=== PATIENT | male | born 1955 | race Hispanic/Latino ===

== ENCOUNTER 2020-12-27 05:05 | Emergency (ER) | payer OTHER ==
[~2020-12-27] VITALS: Ht 177.8 cm; Wt 96.2 kg
[~2020-12-27 05:05] MED LIST: ATOR20TA65 PO; BUSP10TA3 PO; DIVA500T52 PO; INSLAN SQ; OMEP20CA12 PO; RISP3TAB63 PO; SERT-439 PO; TRAZ-144 PO
[2020-12-27 05:08] VITALS: BP 181/103
== END 2020-12-27 05:54 | disposition home or self-care (01) ==
LOC: EDH 05:05
DX: R42 Dizziness and giddiness (principal); Z71.1 Person with feared health complaint in whom no diagnosis is made; E11.9 Type 2 diabetes mellitus without complications; F25.9 Schizoaffective disorder, unspecified; F31.9 Bipolar disorder, unspecified; I10 Essential (primary) hypertension; Z79.4 Long term (current) use of insulin; Z79.899 Other long term (current) drug therapy; Z95.5 Presence of coronary angioplasty implant and graft
CPT/HCPCS: 99281

== ENCOUNTER 2021-04-14 16:50 | Inpatient (IN) | payer OTHER ==
[~2021-04-14] VITALS: Ht 177.8 cm; Wt 91.6 kg
[2021-04-14 17:43] LABS: BASOPHILS % (AUTO) 0.7 % (0.0-5.0); EOSINOPHILS % (AUTO) 2.7 % (0.0-8.0); HEMATOCRIT 40.9 % (42-54); LYMPHOCYTES % (AUTO) 20.2 % (21.0-51.0); MEAN CORPUSCULAR HEMOGLOBIN 30.6 pg (27.0-33.0); MEAN CORPUSCULAR HGB CONC 35.7 g/dL (32.0-36.0); MEAN CORPUSCULAR VOLUME 85.7 fL (79-99); MONOCYTES % (AUTO) 10.9 % (3.0-13.0); NEUTROPHILS % (AUTO) 65.3 % (40.0-77.0); PLATELET COUNT (AUTO) 256 K/uL (130-400); RED BLOOD CELL COUNT(AUTO) 4.77 MIL/uL (4.50-6.20); RED CELL DISTRIBUTION WIDTH 11.9 % (11.0-15.5); WHITE BLOOD COUNT (AUTO) 8.5 K/uL (4.8-10.8)
[2021-04-14 17:50] LABS: CARBON DIOXIDE 26 mmol/L (21-32); CHLORIDE 93 mmol/L (101-111); CREATININE 1.1 mg/dL (0.5-1.5); GLOMERULAR FILTR. RATE CALC 72 mL/min (>60); GLUCOSE,RANDOM 201 mg/dL (70-105); POTASSIUM 4.4 mmol/L (3.5-5.1); SODIUM SERUM 128 mmol/L (136-145); UREA NITROGEN, BLOOD 7 mg/dL (7-18)
[2021-04-14] MEDS ORDERED: 0.9%NACL 1000ML 1,000 ML IV ONE (18:00)
[2021-04-14 18:12] LABS: ALANINE AMINOTRANSFERASE 67 U/L (12-78); ALBUMIN 4.3 g/dL (3.5-5.0); ALCOHOL, BLOOD < 3 mg/dL (0-10); ASPARTATE AMINOTRANSFERASE 131 U/L (10-37); BILIRUBIN,TOTAL 0.7 mg/dL (0.2-1.0); TOTAL PROTEIN, SERUM 8.2 g/dL (6.0-8.3)
[2021-04-14 18:14] LABS: ACETAMINOPHEN < 1 mcg/mL (10-29); SALICYLATE < 2.8 mg/dL (2.8-20.0)
[2021-04-14 18:17] LABS: CREATINE KINASE, TOTAL 2328 U/L (21-232)
[2021-04-14] MEDS ORDERED: ASPIRIN 325MG TAB PO ONE (18:30)
[2021-04-14] MEDS ORDERED: ZOLPIDEM TARTRATE 5 MG TAB PO PRN (20:00)
[2021-04-14] MEDS ORDERED: MORPHINE 4 MG SYG IM PRN (20:00)
[2021-04-14] MEDS ORDERED: NITROGLYCERIN 0.4 MG SL TAB SL PRN (20:00)
[2021-04-14] MEDS ORDERED: ASPIRIN 325MG EC TAB PO ONE (20:00)
[2021-04-14] MEDS ORDERED: ACETAMINOPHEN 325 MG TAB PO PRN (20:00)
[2021-04-14] MEDS ORDERED: HALOPERIDOL INJ 5 MG/ML VIAL IV PRN (20:00)
[2021-04-14 20:20] LABS: HEMOGLOBIN A1C 8.5 % (4.0-6.0)
[2021-04-14] MEDS: FAMOTIDINE 20MG TAB PO SCH (20:41)
[2021-04-14] MEDS: 0.9%NACL 1000ML 1,000 ML IV SCH (20:41)
[2021-04-14] MEDS: ENOXAPARIN SODIUM 100 MG/1 ML SQ SCH (20:43)
[2021-04-14 21:26] LABS: APPEARANCE,URINE Clear (CLEAR); BILIRUBIN,URINE Negative (NEGATIVE); COLOR,URINE Yellow (YELLOW); GLUCOSE, URINE (UA) 250 mg/dL (NEGATIVE); KETONES,URINE 15 mg/dL (NEGATIVE); LEUKOCYTE ESTERASE ,URINE Negative (NEGATIVE); NITRATE,URINE Negative (NEGATIVE); OCCULT BLOOD,URINE Negative (NEGATIVE); PH,URINE 5.5 (5.0-8.0); PROTEIN,URINE Negative (NEGATIVE); UROBILINOGEN,URINE 0.2 mg/dL (0.2-1.0)
[2021-04-14 21:34] LABS: AMPHET/METH SCREEN,URINE NEGATIVE (NEGATIVE); BARBITURATE SCREEN, URINE NEGATIVE (NEGATIVE); BENZODIAZEPINES SCREEN,URINE NEGATIVE (NEGATIVE); CANNABINOID SCREEN,URINE NEGATIVE (NEGATIVE); COCAINE SCREEN,URINE NEGATIVE (NEGATIVE); OPIATE SCREEN,URINE NEGATIVE (NEGATIVE); PHENCYCLIDINE SCREEN,URINE NEGATIVE (NEGATIVE)
[2021-04-14 21:41] LABS: BACTERIA,URINE None Seen /HPF (None Seen); RBC,URINE 0-1 /HPF (0-1); SQUAMOUS EPITHELIAL CELL,UR None Seen /HPF (0-2); WBC,URINE 0-1 /HPF (0-1)
[2021-04-14 22:58] VITALS: BP 130/81
[2021-04-15] MEDS: 0.9%NACL 1000ML 1,000 ML IV SCH ×2 (02:40→20:05)
[2021-04-15 04:00] VITALS: BP 142/82
[2021-04-15 08:00] VITALS: BP 140/88
[2021-04-15] MEDS: FAMOTIDINE 20MG TAB PO SCH ×2 (09:55→20:47)
[2021-04-15] MEDS: ASPIRIN 325MG EC TAB PO SCH (09:55)
[2021-04-15] MEDS: ENOXAPARIN SODIUM 100 MG/1 ML SQ SCH ×2 (09:55→20:48)
[2021-04-15 11:53] VITALS: BP 146/86
[2021-04-15] MEDS ORDERED: BUSPIRONE HCL 5 MG TABLET PO SCH (14:00)
[2021-04-15] MEDS ORDERED: 0.9%NACL 1000ML 729 ML IV ONE (14:00)
[2021-04-15] MEDS ORDERED: [UNRECOGNIZED DRUG - OTHER] IV SCH (15:30)
[2021-04-15 16:00] VITALS: BP 154/71
[2021-04-15 20:00] VITALS: BP 153/92
[2021-04-15] MEDS: TRAZODONE HCL 50 MG TAB PO PRN (20:36)
[2021-04-15] MEDS: ATORVASTATIN 20 MG TABLET PO SCH (20:39)
[2021-04-15] MEDS: BUSPIRONE HCL 5 MG TABLET PO SCH (20:46)
[2021-04-15] MEDS: DIVALPROEX SODIUM 250 MG TABLET.DR PO SCH (20:47)
[2021-04-15] MEDS: RISPERIDONE 1 MG TABLET PO SCH (20:47)
[2021-04-15] MEDS: SODIUM BICARBONATE 650 MG TAB PO SCH (20:47)
[2021-04-15] MEDS ORDERED: TRAZODONE HCL 50 MG TAB PO SCH (21:00)
[2021-04-15] MEDS ORDERED: RISPERIDONE 1 MG TABLET PO SCH (21:00)
[2021-04-15] MEDS: HALOPERIDOL 5 MG TABLET PO PRN (22:11)
[2021-04-15] MEDS ORDERED: DiphenhydrAMINE HCL 50 MG/ML VIAL ONE (23:26)
[2021-04-15] MEDS: SODIUM BICARB 8.4% 50ML SYRING 150 MEQ in DEXTROSE 5%-WATER 1,000 ML IVP SCH (23:30)
[2021-04-15] MEDS ORDERED: DiphenhydrAMINE HCL 50 MG/ML VIAL IV ONE (23:30)
[2021-04-16] VITALS (7 sets, daily range): BP systolic 129–171; BP diastolic 69–92
[2021-04-16 03:34] LABS: HEMATOCRIT 37.6 % (42-54); MEAN CORPUSCULAR HEMOGLOBIN 30.9 pg (27.0-33.0); MEAN CORPUSCULAR HGB CONC 34.8 g/dL (32.0-36.0); MEAN CORPUSCULAR VOLUME 88.7 fL (79-99); RED BLOOD CELL COUNT(AUTO) 4.24 MIL/uL (4.50-6.20); RED CELL DISTRIBUTION WIDTH 12.1 % (11.0-15.5); WHITE BLOOD COUNT (AUTO) 5.9 K/uL (4.8-10.8)
[2021-04-16 04:06] LABS: CREATININE 1.1 mg/dL (0.5-1.5)
[2021-04-16] MEDS: 0.9%NACL 1000ML 1,000 ML IV SCH ×2 (05:24→18:40)
[2021-04-16] MEDS ORDERED: SERTRALINE HCL 50 MG TABLET PO SCH (09:00)
[2021-04-16] MEDS: RISPERIDONE 1 MG TABLET PO SCH ×2 (09:00→21:46)
[2021-04-16] MEDS: DIVALPROEX SODIUM 250 MG TABLET.DR PO SCH ×2 (09:00→21:46)
[2021-04-16] MEDS: ASPIRIN 325MG EC TAB PO SCH (09:01)
[2021-04-16] MEDS: BUSPIRONE HCL 5 MG TABLET PO SCH ×3 (09:01→21:45)
[2021-04-16] MEDS: FAMOTIDINE 20MG TAB PO SCH ×2 (09:01→21:46)
[2021-04-16] MEDS: SODIUM BICARBONATE 650 MG TAB PO SCH ×3 (09:01→21:46)
[2021-04-16] MEDS: ENOXAPARIN SODIUM 100 MG/1 ML SQ SCH ×2 (09:02→21:47)
[2021-04-16] MEDS: SODIUM BICARB 8.4% 50ML SYRING 150 MEQ in DEXTROSE 5%-WATER 1,000 ML IVP SCH ×2 (11:00→20:32)
[2021-04-16] MEDS ORDERED: PHENOL 177 ML BOTTLE PO PRN (14:00)
[2021-04-16] MEDS: ATORVASTATIN 20 MG TABLET PO SCH (21:00)
[2021-04-16] MEDS: TRAZODONE HCL 50 MG TAB PO PRN (21:47)
[2021-04-17] MEDS: 0.9%NACL 1000ML 1,000 ML IV SCH ×3 (01:24→20:45)
[2021-04-17 05:34] VITALS: BP 188/96
[2021-04-17] MEDS: DIVALPROEX SODIUM 250 MG TABLET.DR PO SCH ×2 (08:07→20:47)
[2021-04-17] MEDS: RISPERIDONE 1 MG TABLET PO SCH ×2 (08:07→20:47)
[2021-04-17] MEDS: ASPIRIN 325MG EC TAB PO SCH (08:07)
[2021-04-17] MEDS: SODIUM BICARBONATE 650 MG TAB PO SCH ×2 (08:07→14:28)
[2021-04-17] MEDS: ENOXAPARIN SODIUM 100 MG/1 ML SQ SCH ×2 (08:07→20:45)
[2021-04-17] MEDS: FAMOTIDINE 20MG TAB PO SCH ×2 (08:07→20:47)
[2021-04-17] MEDS: BUSPIRONE HCL 5 MG TABLET PO SCH ×3 (08:08→20:46)
[2021-04-17 08:12] VITALS: BP 165/91
[2021-04-17 12:00] VITALS: BP 180/92
[2021-04-17] MEDS: SODIUM BICARB 8.4% 50ML SYRING 150 MEQ in DEXTROSE 5%-WATER 1,000 ML IVP SCH (12:11)
[2021-04-17 15:29] VITALS: BP 161/92
[2021-04-17 20:00] VITALS: BP 165/80
[2021-04-17] MEDS: ATORVASTATIN 20 MG TABLET PO SCH (20:47)
[2021-04-17] MEDS: HALOPERIDOL 5 MG TABLET PO PRN (21:44)
[2021-04-17 21:50] VITALS: BP 174/89
[2021-04-17] MEDS: HYDRALAZINE HCL 10 MG TABLET PO PRN (22:23)
[2021-04-17] MEDS: TRAZODONE HCL 50 MG TAB PO PRN (23:19)
[2021-04-18] VITALS (8 sets, daily range): BP systolic 144–184; BP diastolic 80–98
[2021-04-18] MEDS: 0.9%NACL 1000ML 1,000 ML IV SCH ×4 (01:09→21:01)
[2021-04-18 05:40] LABS: BASOPHILS % (AUTO) 0.6 % (0.0-5.0); EOSINOPHILS % (AUTO) 5.6 % (0.0-8.0); HEMATOCRIT 35.8 % (42-54); LYMPHOCYTES % (AUTO) 26.1 % (21.0-51.0); MEAN CORPUSCULAR HEMOGLOBIN 29.8 pg (27.0-33.0); MEAN CORPUSCULAR HGB CONC 34.1 g/dL (32.0-36.0); MEAN CORPUSCULAR VOLUME 87.3 fL (79-99); NEUTROPHILS % (AUTO) 56.2 % (40.0-77.0); PLATELET COUNT (AUTO) 203 K/uL (130-400); RED CELL DISTRIBUTION WIDTH 11.8 % (11.0-15.5); WHITE BLOOD COUNT (AUTO) 6.6 K/uL (4.8-10.8)
[2021-04-18 06:09] LABS: ALBUMIN 3.2 g/dL (3.5-5.0); BILIRUBIN,TOTAL 0.3 mg/dL (0.2-1.0); POTASSIUM 3.5 mmol/L (3.5-5.1); TOTAL PROTEIN, SERUM 6.7 g/dL (6.0-8.3)
[2021-04-18] MEDS: BUSPIRONE HCL 5 MG TABLET PO SCH ×3 (07:52→21:08)
[2021-04-18] MEDS: DIVALPROEX SODIUM 250 MG TABLET.DR PO SCH ×2 (07:52→21:07)
[2021-04-18] MEDS: FAMOTIDINE 20MG TAB PO SCH ×2 (07:52→21:06)
[2021-04-18] MEDS: ASPIRIN 325MG EC TAB PO SCH (07:52)
[2021-04-18] MEDS: ENOXAPARIN SODIUM 100 MG/1 ML SQ SCH ×2 (07:53→21:12)
[2021-04-18] MEDS: HYDRALAZINE HCL 10 MG TABLET PO PRN (07:53)
[2021-04-18] MEDS: RISPERIDONE 1 MG TABLET PO SCH ×2 (07:53→21:07)
[2021-04-18] MEDS: HALOPERIDOL 5 MG TABLET PO PRN (17:11)
[2021-04-18] MEDS: ATORVASTATIN 20 MG TABLET PO SCH (21:10)
[2021-04-18] MEDS: TRAZODONE HCL 50 MG TAB PO PRN (21:10)
[2021-04-19 00:34] VITALS: BP 154/78
[2021-04-19] MEDS: HALOPERIDOL 5 MG TABLET PO PRN (01:50)
[2021-04-19] MEDS: 0.9%NACL 1000ML 1,000 ML IV SCH ×3 (02:07→12:46)
[2021-04-19 03:51] VITALS: BP 154/79
[2021-04-19 05:48] LABS: BASOPHILS % (AUTO) 0.6 % (0.0-5.0); EOSINOPHILS % (AUTO) 7.2 % (0.0-8.0); HEMATOCRIT 34.7 % (42-54); LYMPHOCYTES % (AUTO) 28.3 % (21.0-51.0); MEAN CORPUSCULAR HEMOGLOBIN 30.1 pg (27.0-33.0); MEAN CORPUSCULAR HGB CONC 34.3 g/dL (32.0-36.0); MEAN CORPUSCULAR VOLUME 87.8 fL (79-99); MONOCYTES % (AUTO) 9.8 % (3.0-13.0); NEUTROPHILS % (AUTO) 53.5 % (40.0-77.0); PLATELET COUNT (AUTO) 214 K/uL (130-400); RED BLOOD CELL COUNT(AUTO) 3.95 MIL/uL (4.50-6.20); RED CELL DISTRIBUTION WIDTH 11.8 % (11.0-15.5); WHITE BLOOD COUNT (AUTO) 7.3 K/uL (4.8-10.8)
[2021-04-19 06:02] LABS: ALBUMIN 3.3 g/dL (3.5-5.0); BILIRUBIN,TOTAL 0.3 mg/dL (0.2-1.0); POTASSIUM 3.6 mmol/L (3.5-5.1); TOTAL PROTEIN, SERUM 6.6 g/dL (6.0-8.3)
[2021-04-19] MEDS: DIVALPROEX SODIUM 250 MG TABLET.DR PO SCH ×2 (07:48→21:27)
[2021-04-19] MEDS: BUSPIRONE HCL 5 MG TABLET PO SCH ×3 (07:48→21:28)
[2021-04-19] MEDS: FAMOTIDINE 20MG TAB PO SCH ×2 (07:48→21:28)
[2021-04-19] MEDS: RISPERIDONE 1 MG TABLET PO SCH ×2 (07:48→21:28)
[2021-04-19] MEDS: ASPIRIN 325MG EC TAB PO SCH (07:49)
[2021-04-19] MEDS: ENOXAPARIN SODIUM 100 MG/1 ML SQ SCH ×2 (07:49→21:29)
[2021-04-19] MEDS: HYDRALAZINE HCL 10 MG TABLET PO PRN (07:52)
[2021-04-19 08:00] VITALS: BP 162/98
[2021-04-19 12:00] VITALS: BP 164/92
[2021-04-19 16:00] VITALS: BP 163/98
[2021-04-19] MEDS ORDERED: RISP1TAB89 PO (17:26)
[2021-04-19] MEDS ORDERED: DIVA250T4 PO (17:26)
[2021-04-19 20:23] VITALS: BP 158/80
[2021-04-19] MEDS: ATORVASTATIN 20 MG TABLET PO SCH (21:28)
[2021-04-19] MEDS: TRAZODONE HCL 50 MG TAB PO PRN (21:28)
[2021-04-20 00:15] VITALS: BP 161/86
[2021-04-20 07:15] VITALS: BP 165/87
[2021-04-20] MEDS: ASPIRIN 325MG EC TAB PO SCH (08:49)
[2021-04-20] MEDS: BUSPIRONE HCL 5 MG TABLET PO SCH ×3 (08:50→20:37)
[2021-04-20] MEDS: FAMOTIDINE 20MG TAB PO SCH ×2 (08:50→20:37)
[2021-04-20] MEDS: RISPERIDONE 1 MG TABLET PO SCH ×2 (08:50→20:37)
[2021-04-20] MEDS: DIVALPROEX SODIUM 250 MG TABLET.DR PO SCH ×2 (08:50→20:38)
[2021-04-20] MEDS: ENOXAPARIN SODIUM 100 MG/1 ML SQ SCH ×2 (08:53→20:39)
[2021-04-20] MEDS: HYDRALAZINE HCL 10 MG TABLET PO PRN ×2 (09:02→18:59)
[2021-04-20 11:15] VITALS: BP 148/84
[2021-04-20 15:15] VITALS: BP 190/105
[2021-04-20] MEDS: ATORVASTATIN 20 MG TABLET PO SCH (20:38)
[2021-04-20 20:39] VITALS: BP 176/79
[2021-04-20] MEDS: TRAZODONE HCL 50 MG TAB PO PRN (20:53)
[2021-04-21 00:05] VITALS: BP 176/86
[2021-04-21 04:17] VITALS: BP 145/88
[2021-04-21 07:10] VITALS: BP 143/81
[2021-04-21] MEDS: ASPIRIN 325MG EC TAB PO SCH (08:52)
[2021-04-21] MEDS: DIVALPROEX SODIUM 250 MG TABLET.DR PO SCH (08:52)
[2021-04-21] MEDS: FAMOTIDINE 20MG TAB PO SCH (08:52)
[2021-04-21] MEDS: ENOXAPARIN SODIUM 100 MG/1 ML SQ SCH (08:53)
[2021-04-21] MEDS: BUSPIRONE HCL 5 MG TABLET PO SCH (08:53)
[2021-04-21] MEDS: RISPERIDONE 1 MG TABLET PO SCH (08:53)
[2021-04-21] MEDS: HALOPERIDOL 5 MG TABLET PO PRN (10:23)
== END 2021-04-21 11:30 | DRG 281 ==
LOC: EDH 16:50 → UNDOADMOB 19:51 → 3CH 19:51 → EDHIP 19:51 → 3CH 19:52 → INTOOBSV 19:52 → OBSVTOIN 19:52 → UNDOADMOB 19:52 → 3CH 22:22 → EDHIP 22:22 → 3CH 22:37 → OBSVTOIN 04-16 15:51 → INTOOBSV 04-16 15:51
PROVIDERS: ADMIT Internal Medicine Critical Care Medicine; ATTEND Internal Medicine Critical Care Medicine
DX: I21.4 Non-ST elevation (NSTEMI) myocardial infarction (principal); F20.1 Disorganized schizophrenia; E87.1 Hypo-osmolality and hyponatremia; M62.82 Rhabdomyolysis; E11.65 Type 2 diabetes mellitus with hyperglycemia; I10 Essential (primary) hypertension; F41.1 Generalized anxiety disorder; F41.9 Anxiety disorder, unspecified; F31.9 Bipolar disorder, unspecified; I25.10 Atherosclerotic heart disease of native coronary artery without angina pectoris; Z60.2 Problems related to living alone; Z79.4 Long term (current) use of insulin; Z79.82 Long term (current) use of aspirin; Z79.899 Other long term (current) drug therapy; Z95.5 Presence of coronary angioplasty implant and graft; Z83.3 Family history of diabetes mellitus
CPT/HCPCS: 36415; 71045; 80048; 80053; 80305; 81001; 82140; 82550; 82948; 83036; 84484; 85025; 85027; 87635; 93005; C9803; G0378; G0481; J1200; J1630; J1650; J3490; J7030; J7070